=== PATIENT | male | born 1950 | race Caucasian/White ===

== ENCOUNTER 2020-04-12 10:50 | Outpatient (CLI) | payer MEDICARE, BC | END 2020-04-12 10:51 | disposition home or self-care (01) | LOC: COV 10:50 | PROVIDERS: ATTEND Family Medicine | DX: J02.9 Acute pharyngitis, unspecified (principal); R19.7 Diarrhea, unspecified; Z20.828 Contact with and (suspected) exposure to other viral communicable diseases ==

== ENCOUNTER 2020-07-18 07:00 | Outpatient (CLI) | payer MEDICARE, BC | END 2020-07-18 23:59 | disposition home or self-care (01) | LOC: COV 07:00 | PROVIDERS: ATTEND Family Medicine | DX: M79.10 Myalgia, unspecified site (principal); R53.83 Other fatigue; R19.7 Diarrhea, unspecified; R09.81 Nasal congestion; J34.89 Other specified disorders of nose and nasal sinuses; Z20.822 Contact with and (suspected) exposure to COVID-19 ==